=== PATIENT | female | born 1945 | race Caucasian/White ===

== ENCOUNTER 2021-12-18 12:59 | Emergency (ER) | payer OTHER, SELFPAY ==
--- NOTE | ~2021-12-18 | CT_ITS ---
EXAMINATION: CT brain wo con DATE: 12/18/2021 13:51 INDICATION: Left periorbital erythema and swelling. TECHNIQUE: Computed tomography (CT) of the head was performed without intravenous contrast. The mA wa s adjusted according to patient size. Iterative reconstruction technique was employed. The dose-lengt h product was 1362.00 mGy-cm. COMPARISON: None FINDINGS: There are scattered areas of low attenuation in the cerebral white matter. 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 There is no intracranial hemorrhage, acute infarction, or abnormal in tracranial mass lesion. The ventricles are normal in size. The paranasal sinuses are normal. There ar e changes of right-sided mastoidectomy. The orbits are normal. IMPRESSION: 1. 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 2. Moderate nonspecific cerebral white matter disease, which likely represents chronic small vessel i schemic disease. Reviewed, dictated and finalized at location A. IMPRESSION: 1. 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 2. Moderate nonspecific cerebral white matter disease, which likely represents chronic small vessel ischemic disease.
[2021-12-18 13:00] VITALS: BP 110/51; PULSE 82; RESP 18; TEMP 36.3; O2SAT 97
--- NOTE | 2021-12-18 13:34 | ED.GENADULT ---
HPI - General Adult General Chief complaint: Eye Problems Stated complaint: swelling/redness L eye Time Seen by Provider: 12/18/21 13:28 History of Present Illness HPI narrative: is a 76-year-old female presenting to ED with redness around her left eye. She is a care home patient. She is A&O times 0 baseline. A visitor came to see her and noticed that she had some redness around her left eye. She then requests she was sent to the emergency department to get evaluated. Per staff the patient has not had any recent falls or injuries. The patient herself has no complaints at this time. Related Data Allergies Allergy/AdvReac Type Severity Reaction Status Date / Time No Known Allergies Allergy Verified 12/18/21 14:19 Review of Systems Review of Systems: CONSTITUTIONAL: Denies night sweats. EYES: No eye pain ENT: Denies rhinorrhea CARDIOVASCULAR: Denies palpitations RESPIRATORY: Denies hemoptysis GASTROINTESTINAL: Denies hematemesis GENITOURINARY: Denies hematuria. SKIN: Denies rash MUSCULOSKELETAL: Denies myalgia. NEUROLOGIC: Denies weakness. PSYCHIATRIC: Denies delusions [facility] Past Medical History Medical History (Updated 12/18/21 @ 14:10 by Kvng Elias MD) CHF (congestive heart failure) Dementia Diabetes Hypothyroid Schizophrenia Exam Narrative: APPEARANCE: No apparent distress. Patient appears older than her stated age. She is alert but not oriented to person/place/time. Head atraumatic. EYES: PERRLA/EOMI, There is erythema around the left eye. There is no swelling. There is no conjunctival injection or purulent discharge. NOSE: Normal no drainage NECK: Supple, Trachea midline RESPIRATORY: CTAB, No increased work of breathing. CARDIOVASCULAR: S1S2 appreciated ABDOMINAL: Soft, nontender, nondistended, MUSCULOSKELETAl: No obvious deformities NEURO: Alert. Moving 4/4 extremities SKIN:: Warm, dry. Normal color PSYCHIATRIC: Demented Course Vital Signs Vital signs: Vital Signs Temperature 97.3 F L 12/18/21 13:00 Pulse Rate 82 12/18/21 13:00 Respiratory Rate 18 12/18/21 13:00 Blood Pressure 110/51 L 12/18/21 13:00 Pulse Oximetry 97 12/18/21 13:00 Temperature 97.3 F L 12/18/21 13:00 Pulse Rate 82 12/18/21 13:00 Respiratory Rate 18 12/18/21 13:00 Blood Pressure 110/51 L 12/18/21 13:00 Pulse Oximetry 97 12/18/21 13:00 Medical Decision Making MDM Narrative Medical decision making narrative: this is a 76-year-old dementia patient presented to ED for redness around her left eye. Patient denies pain with extraocular eye movements. Differential includes infectious versus traumatic etiology. CT of the head has been ordered. It was negative for acute bleed or facial injury. The patient is alert but oriented x0. She is DNR/DNI. She has stable vital signs and appears to be at her baseline mental status. She will be discharged back to care home with prescription for Keflex. Differential Diagnosis Differential Diagnosis: Periorbital cellulitis versus traumatic injury. Vital Signs Vital Signs: Vital Signs Temperature 97.3 F L 12/18/21 13:00 Pulse Rate 82 12/18/21 13:00 Respiratory Rate 18 12/18/21 13:00 Blood Pressure 110/51 L 12/18/21 13:00 Pulse Oximetry 97 12/18/21 13:00 Temperature 97.3 F L 12/18/21 13:00 Pulse Rate 82 12/18/21 13:00 Respiratory Rate 18 12/18/21 13:00 Blood Pressure 110/51 L 12/18/21 13:00 Pulse Oximetry 97 12/18/21 13:00 Discharge Plan Discharge Clinical Impression: Cellulitis, Dementia Patient Disposition: OK Alf/Asst Living Condition: Stable Instructions: Antibiotic Form, Cellulitis (ED) Additional Instructions: Please complete your course of Keflex. Please send the patient back to the care home if her condition is to worsen. Prescriptions: New cephalexin 500 mg capsule 500 mg PO Q12H Qty: 14 0RF Stand Alone Forms: [facility]pc Dischar
[2021-12-18] MEDS: CEPHALEXIN 500 MG CAPSULE PO (15:05)
--- NOTE | 2021-12-18 15:06 | PC.NURSE ---
Patient care report called to Corby at [facility].
--- NOTE | 2021-12-18 16:42 | PC.NURSE ---
Tire Spotter to bedside to clean patient up. Patient had stool on her hands and under her nails. Patient cleaned up by technical proposal writer and ED aircraft avionics technician. Patient's hands cleaned, periarea cleaned, and new diaper placed on patient. Patient has some skin break down noticed on her her buttocks.
== END 2021-12-18 16:57 ==
PROVIDERS: Emergency Provider Emergency Medicine
DX: H05.012 Cellulitis of left orbit (principal); I50.9 Heart failure, unspecified; F03.90 Unspecified dementia, unspecified severity, without behavioral disturbance, psychotic disturbance, mood disturbance, and anxiety; E11.9 Type 2 diabetes mellitus without complications; E03.9 Hypothyroidism, unspecified; F20.9 Schizophrenia, unspecified
CPT/HCPCS: 70450; 99284; A9270